=== PATIENT | female | born 1990 | race Caucasian/White ===

== ENCOUNTER 2020-10-19 06:36 | Emergency (ER) | payer SELFPAY ==
[2020-10-19 06:39] VITALS: BP 104/56; PULSE 67; RESP 15; TEMP 36.8; O2SAT 98; BMI 26.6
--- NOTE | 2020-10-19 06:57 | XR_ITS ---
PROCEDURE: CR XR FOREARM RT 2V CR XR WRIST RT MIN 3V Referring Doctor: Berry Tinajero Patient Age:30Y CLINICAL INDICATION: fall with arm injury Fall this morning with right forearm and right wrist pain. COMPARISON: CR XR WRIST RT MIN 3V from 10/19/2020 TECHNIQUE: Right wrist 3 View AP, Oblique, Lateral Right forearm AP and lateral views FINDINGS: Right wrist Acute fracture transversing the distal metaphysis of the radius. Nondisplaced fracture with perhaps some minor cortical buckling at the radial dorsal aspect of distal radius. No displacement at the fracture line. But no articular involvement evident Distal ulna appears intact. The carpal bones appear intact with normal relationships. Specifically the is scaphoid appears intact.. Right forearm The fracture transversing the distal radius metaphysis is again evident as described right wrist report above. The shaft and proximal aspect the radius are intact. Ulna is intact This forearm study study includes limited two views of the elbow which are grossly unremarkable IMPRESSION: Nondisplaced fracture distal right radius. Minimal fracture line is seen transversing the distal metaphysis. The carpals otherwise intact of the left wrist images, and remainder of the left forearm is intact Dictated by: Drew Zimmerman MD 10/19/2020 16:50 Drew Zimmerman MD in [place] 10/19/2020 16:50
[2020-10-19 07:24] VITALS: BP 104/63; PULSE 57; RESP 18; O2SAT 100
--- NOTE | 2020-10-19 07:37 | [facility].EDUPEXT ---
ED Disposition Clinical Impression: Fracture of wrist Qualifiers: Encounter type: initial encounter Fracture type: closed Laterality: right Qualified Code(s): S62.101A - Fracture of unspecified carpal bone, right wrist, initial encounter for closed fracture Disposition: Home, Self-Care Condition on Discharge: Good Instructions: DI for Distal Radius Fracture Additional Instructions: advil/tyenol and see ortho for follow up Referrals: PCP,No [Primary Care Provider] - Kelton Tsang MD [Staff Physician] - - Critical Care Critical Care Time: No Attestation: On 10/19/20, the high probability of a clinically significant, sudden or life threatening deterioration of the following system(s) required my full and direct attention, intervention and personal management. The time I documented below is in addition to time spent performing reported procedures but includes the following listed in this critical care notation. Medical Decision Making - Medical Records Medical records reviewed: Yes: I reviewed the patient's medical records. - [place] Inquiry Pt receiving controlled substance: No Vital Signs: 10/19/20 06:39 10/19/20 07:24 Temperature 98.2 F Temperature Source Oral Pulse Rate [Right Brachial] 67 57 L Respiratory Rate 15 18 Blood Pressure [Right Arm] 104/56 L 104/63 L Blood Pressure Mean [Right Arm] 72 76 Blood Pressure Source [Right Arm] Automatic Cuff Blood Pressure Position [Right Arm] Sitting 02 Sat by Pulse Oximetry 98 100 Oxygen Delivery Method Room Air Orders (Tests/Meds): ORDERS Category Date Time Status Forearm XR right 2 views [XR forearm RT 2V] Stat Exams 10/19/20 06:57 Taken Wrist XR right minimum 3 views [XR wrist RT min 3V] Exams 10/19/20 07:42 Ordered Stat - Radiology Data #1 Image(s): Forearm, Wrist Image Reviewed: Yes I reviewed the patient's radiology image Preliminary Findings: Abnormal Upper Extremity HPI - General Chief Complaint: Extremity Injury, Upper Stated Complaint: AO 10/19/20 Fell injury right arm Time Seen by Provider: 10/19/20 07:05 Mode of Arrival: Family Vehicle Source of Information: Patient, Medical Record Limitations: No Limitations Description of Symptoms (Recalled from ER Triage Doc. by RN): fell and injured right arm - History of Present Illness HPI narrative: slip and fell this am with rt upper ext injury complaint: injury to: right, forearm, wrist Onset (ago): hour(s) Other Extremity Injury: Right: wrist Other injuries: none Handedness: right Place: home Severity: moderate Context: fall Associated symptoms: denies other symptoms - Related Data Home Medications Medication Instructions Recorded Confirmed No Known Home Medications 10/19/20 10/19/20 Allergies Allergy/AdvReac Type Severity Reaction Status Date / Time No Known Allergies Allergy Verified 10/19/20 06:57 [facility] History - Hepatitis A Screen Drug use history?: No High risk sexual behaviors?: No History of sexually transmitted infection?: No Currently employed?: No Childcare worker?: No Do you have indoor plumbing?: Yes Do you have electricity?: Yes Attestation statement:: This patient has been screened for Hepatitis A risk factors. I have reviewed the patient's past medical history: Yes ROS Obtained: Yes All systems reviewed & no additional complaints - Constitutional Constitutional: Denies fever(s) - Eyes Eyes: Denies change in vision - ENT Ears, Nose, Mouth, and Throat: Denies sore throat - Cardiovascular Cardiovascular: Denies chest pain - Respiratory Respiratory: Denies shortness of breath - Gastrointestinal Gastrointestingal: Denies: vomiting - Genitourinary Female Genitourinary: Denies hematuria - Musculoskeletal Musculoskeletal: Reports as per HPI, Reports joint pain, Reports joint swelling, Reports limited range of motion - Integumentary/Breasts Skin/Breast: Denies rash - Neurologic Neurologic:
--- NOTE | 2020-10-19 07:43 | PC.NURSE ---
pt and family updated on plan of care
[2020-10-19 08:22] VITALS: BP 104/64; PULSE 62; RESP 16; TEMP 36.6; O2SAT 98
== END 2020-10-19 08:24 | disposition home or self-care (01) ==
PROVIDERS: Emergency Provider Emergency Medicine
DX: S52.501A Unspecified fracture of the lower end of right radius, initial encounter for closed fracture (principal); W01.0XXA Fall on same level from slipping, tripping and stumbling without subsequent striking against object, initial encounter; Y92.019 Unspecified place in single-family (private) house as the place of occurrence of the external cause
CPT/HCPCS: 29125; 73090; 73110; 99283

== ENCOUNTER → 2020-10-28 11:29 | Outpatient (CLI) | payer SELFPAY ==
--- NOTE | 2020-10-28 11:32 | XR_ITS ---
PROCEDURE: XR WRIST RT MIN 3V CLINICAL INDICATION: right wrist fracture/ cast applied COMPARISON: CR XR WRIST RT MIN 3V from 10/19/2020 FINDINGS: Status post cast placement. There is good alignment. The cast obscures the subtle fracture of the distal radius. The joint spaces are well-preserved. No significant degenerative/arthritic changes. No erosive changes evident. Other findings:None. IMPRESSION: Good alignment status post cast placement Dictated by: Dwayne Bennett MD 10/28/2020 15:19 Dwayne Bennett MD in [place] 10/28/2020 15:19
== END ==
PROVIDERS: Visit Provider Orthopaedic Surgery
DX: S62.109A Fracture of unspecified carpal bone, unspecified wrist, initial encounter for closed fracture (principal)
CPT/HCPCS: 73110